=== PATIENT | female | born 1960 | race Caucasian/White ===

== ENCOUNTER 2023-09-27 08:00 | Outpatient (CLI) | payer OTHER | END 2023-09-27 08:01 | disposition home or self-care (01) | LOC: PET 08:00 | PROVIDERS: ATTEND Internal Medicine Hematology & Oncology | DX: C43.59 Malignant melanoma of other part of trunk (principal); R22.2 Localized swelling, mass and lump, trunk | CPT/HCPCS: 78816; A9552 ==

== ENCOUNTER 2023-11-15 13:34 | Outpatient (CLI) | payer BC ==
[2023-11-15 15:22] LABS: #Eosinphils 0.3 10x3/uL (0.0-0.5); #Monocytes 0.6 10x3/uL (0.0-1.1); #Neutrophils 5.3 10x3/uL (1.5-8.4); %Basophils 0.5 % (0.0-2.0); %Eosinophils 3.6 % (0.0-6.0); %Lymphocytes 19.6 % (18.0-47.0); %Monocytes 8.2 % (0.0-10.0); %Neutrophils 67.7 % (40.0-75.0); Hematocrit 40.6 % (34.9-44.5); Hemoglobin 13.1 g/dL (12.0-15.5); Mean Corpuscular HGB CONC 32.3 g/dL (32.0-36.0); Mean Corpuscular Hemoglobin 27.5 pg (27.0-33.0); Mean Corpuscular Volume 85.1 fl (81.6-98.3); Mean Platelet Volume 10.7 fl (7.4-10.4); Platelet Count 284 10x3/uL (150-450); Red Blood Cell (RBC) Count 4.77 10x6/uL (3.90-5.03); White Blood Cell (WBC) Count 7.8 10x3/uL (3.5-10.5)
[2023-11-15 15:40] LABS: Anion Gap 14 mmol/L (10-20); BUN (Urea Nitrogen) 13 mg/dL (9.8-20.1); Calc. Creatinine Clearance 0 mL/min (70-130); Calcium 8.9 mg/dL (7.8-10.44); Carbon Dioxide 22 mmol/L (23-31); Chloride 109 mmol/L (98-107); Estimated GFR 89; Glucose 100 mg/dL (80-115); Potassium 4.4 mmol/L (3.5-5.1); Sodium 141 mmol/L (136-145)
== END 2023-11-15 13:35 | disposition home or self-care (01) ==
LOC: LABBT 13:34
PROVIDERS: ATTEND Specialist
DX: Z01.818 Encounter for other preprocedural examination (principal)
CPT/HCPCS: 71046; 80048; 85025; 93005; 93010

== ENCOUNTER 2023-11-16 08:26 | Day surgery (SDC) | payer BC ==
[2023-11-16] MEDS ORDERED: Ketorolac Tromethamine 30 MG (1 mL) VIAL ONE (10:54)
[2023-11-16] MEDS ORDERED: Acetaminophen 500 MG TAB ONE (10:54)
[2023-11-16] MEDS ORDERED: fentaNYL PF 100 MCG/2 ML SYRINGE ONE (12:26)
[2023-11-16] MEDS ORDERED: SUGAMMADEX SODIUM 200 MG/2 ML VIAL ONE ×2 (12:26→16:39)
[2023-11-16] MEDS ORDERED: PROPOFOL 20 ML ONE (12:26)
[2023-11-16] MEDS ORDERED: Midazolam HCl 2 mg/2 ml Vial ONE (12:26)
[2023-11-16] MEDS ORDERED: Lidocaine 1% PF 5 ML VIAL ONE (12:27)
[2023-11-16] MEDS ORDERED: Rocuronium Bromide 10 MG/ML (10ML VIAL) ONE (12:27)
[2023-11-16] MEDS ORDERED: Ondansetron PF 4 MG/2 ML Vial ONE ×2 (12:27→17:07)
[2023-11-16] MEDS ORDERED: Dexamethasone 4 mg/ml Vial ONE (12:27)
[2023-11-16] MEDS ORDERED: PHENYLEPHRINE-NS 100 MCG/ML 10 ML SYRINGE ONE (12:28)
[2023-11-16] MEDS ORDERED: Phenylephrine 10 MG/ML VIAL ONE (12:29)
[2023-11-16] MEDS ORDERED: Phenylephrine 40 MG/NS 250 ML 250 ML ONE (14:11)
[2023-11-16] MEDS ORDERED: Etomidate 40 MG (20 mL) VIAL ONE (14:15)
[2023-11-16] MEDS ORDERED: Isosulfan Blue 50 MG/5 ML VIAL ONE (14:15)
[2023-11-16] MEDS ORDERED: EPINEPHrine 1 MG/ML VIAL ONE (14:15)
[2023-11-16] MEDS ORDERED: Bupivacaine 0.25% HCL 30 ML VIAL ONE (14:15)
[2023-11-16] MEDS ORDERED: CEFAZOLIN 2 GM VIAL ONE (14:21)
[2023-11-16] MEDS ORDERED: Sodium Chloride 0.9% 100 ML ONE (14:21)
[2023-11-16] MEDS ORDERED: Lidocaine 2% PF 5 ML VIAL ONE (14:55)
[2023-11-16] MEDS ORDERED: Glycopyrrolate 0.2 MG/ML 5 ML SYRINGE ONE (14:56)
[2023-11-16] MEDS ORDERED: Bacitracin Zinc Ointment 30 gm TUBE ONE (15:43)
[2023-11-16] MEDS ORDERED: fentaNYL 50 mcg/mL 1 mL Vial ONE ×2 (17:14→17:40)
[2023-11-16] MEDS ORDERED: HYDROcodone/Acetaminophen 5/325 mg Tablet ONE (18:05)
== END 2023-11-16 19:10 | disposition home or self-care (01) ==
LOC: SDC 08:26
PROVIDERS: ATTEND Specialist
PROC: 0HB6XZZ Excision of Back Skin, External Approach (ICD-10-PCS; principal; 2023-11-16)
PROC: 07B50ZX Excision of Right Axillary Lymphatic, Open Approach, Diagnostic (ICD-10-PCS; principal; 2023-11-16)
DX: C43.59 Malignant melanoma of other part of trunk (principal); Z88.5 Allergy status to narcotic agent; Z90.89 Acquired absence of other organs
CPT/HCPCS: 78195; 88305; 88307; 88342; A9541; J0171; J0665; J1100; J1885; J2001; J2250; J2371; J2405; J2704; J3010; J3490; Q9968

== ENCOUNTER 2024-08-22 07:15 | Outpatient (CLI) | payer MEDICARE ==
[2024-08-22] MEDS ORDERED: Iopamidol 370 76% 100 ML VIAL ONE (11:25)
== END 2024-08-22 07:16 | disposition home or self-care (01) ==
LOC: BICCT 07:15
PROVIDERS: ATTEND Internal Medicine Hematology & Oncology
DX: C43.59 Malignant melanoma of other part of trunk (principal); R59.0 Localized enlarged lymph nodes; Z79.899 Other long term (current) drug therapy
CPT/HCPCS: 71260; 74177; Q9967

== ENCOUNTER 2024-08-29 09:30 | Outpatient (CLI) | payer MEDICARE | END 2024-08-29 09:31 | disposition home or self-care (01) | LOC: PET 09:30 | PROVIDERS: ATTEND Internal Medicine Hematology & Oncology | DX: C43.59 Malignant melanoma of other part of trunk (principal); R59.0 Localized enlarged lymph nodes; Z79.899 Other long term (current) drug therapy | CPT/HCPCS: 78815; A9552 ==

== ENCOUNTER 2024-10-18 13:25 | Outpatient (CLI) | payer MEDICARE | END 2024-10-18 13:26 | disposition home or self-care (01) | LOC: ULT 13:25 | PROVIDERS: ATTEND Specialist | DX: C43.59 Malignant melanoma of other part of trunk (principal) | CPT/HCPCS: 76999 ==

== ENCOUNTER 2025-08-03 14:07 | Outpatient (CLI) | payer MEDICARE | END 2025-08-03 14:08 | disposition home or self-care (01) | LOC: BICMAMMO 14:07 | PROVIDERS: ATTEND Family Medicine | DX: Z12.31 Encounter for screening mammogram for malignant neoplasm of breast (principal) | CPT/HCPCS: 77063; 77067 ==